=== PATIENT | female | born 1950 | race Caucasian/White ===

== ENCOUNTER → 2016-07-16 | Outpatient (CLI) | payer MEDICARE, BC ==
[~2016-07-16] MED LIST: ATROVENT I0.2 MG/1 M IH; CALCIUM CITRAT200 MG PO; DEXILANT60 MG PO; EVISTA 60MG60 MG/TAB PO; FOSAMAX 70MG TA70 MG PO; OCUVITE1 TA1 PO; SINGULAIR 110 MG/TAB PO; THERA TABS1 TA1 PO; VITAMIN C500 MG PO; VITAMIN D31000 IU PO; ZYRTEC 10MG10 MG PO
== END ==
LOC: MC.RAD 10:00
DX: Z12.31 Encounter for screening mammogram for malignant neoplasm of breast (principal); Z80.3 Family history of malignant neoplasm of breast

== ENCOUNTER → 2016-09-17 | Outpatient (CLI) | payer MEDICARE, BC | LOC: COL.RAD 07:32 | DX: K58.9 Irritable bowel syndrome, unspecified (principal); R10.9 Unspecified abdominal pain | CPT/HCPCS: A9541 ==

== ENCOUNTER → 2017-07-19 | Outpatient (CLI) | payer MEDICARE, BC | LOC: MC.RAD 10:52 | DX: Z12.31 Encounter for screening mammogram for malignant neoplasm of breast (principal) ==

== ENCOUNTER → 2018-08-02 | Outpatient (CLI) | payer MEDICARE, BC | LOC: MC.RAD 14:55 | DX: Z12.31 Encounter for screening mammogram for malignant neoplasm of breast (principal) ==

== ENCOUNTER → 2019-08-08 | Outpatient (CLI) | payer MEDICARE, BC | LOC: MC.RAD 09:49 | DX: Z12.31 Encounter for screening mammogram for malignant neoplasm of breast (principal) ==

== ENCOUNTER → 2019-09-11 | Outpatient (CLI) | payer MEDICARE, BC | LOC: COL.RAD 13:00 | DX: J32.1 Chronic frontal sinusitis (principal); Z98.890 Other specified postprocedural states ==

== ENCOUNTER → 2020-08-08 | Outpatient (CLI) | payer MEDICARE, BC | LOC: MC.RAD 10:21 | DX: Z12.31 Encounter for screening mammogram for malignant neoplasm of breast (principal) ==

== ENCOUNTER 2020-10-07 09:45 | Outpatient (RCR) | payer MEDICARE, BC | END 2020-12-22 | disposition home or self-care (01) | LOC: WSST | DX: R49.0 Dysphonia (principal); J38.7 Other diseases of larynx; R05 Cough ==

== ENCOUNTER → 2020-10-24 | Outpatient (CLI) | payer MEDICARE, BC | LOC: COL.RAD 13:36 | DX: M47.818 Spondylosis without myelopathy or radiculopathy, sacral and sacrococcygeal region (principal) | CPT/HCPCS: G0260; J3301 ==

== ENCOUNTER 2020-11-28 14:46 | Emergency (ER) | payer MEDICARE, BC ==
[~2020-11-28] VITALS: Ht 167.6 cm; Wt 58.6 kg
[2020-11-28 15:47] VITALS: BP 134/64; PULSE 88; TEMP 98.9
== END 2020-11-28 15:45 | disposition home or self-care (01) ==
LOC: COL.ER 14:46
DX: L03.116 Cellulitis of left lower limb (principal); J45.909 Unspecified asthma, uncomplicated

== ENCOUNTER → 2021-08-28 | Outpatient (CLI) | payer MEDICARE, BC | LOC: MC.RAD 09:13 | DX: Z12.31 Encounter for screening mammogram for malignant neoplasm of breast (principal) ==

== ENCOUNTER 2022-02-11 13:46 | Outpatient (RCR) | payer MEDICARE, BC ==
[~2022-02-11] VITALS: Ht 167.6 cm; Wt 60.9 kg
[~2022-02-11 13:46] MED LIST changes: -CALCIUM CITRAT200 MG PO; +CALTRATE-600 W600 MG PO; +PRESERVISION1 SGL PO
[2022-02-11 14:05] VITALS: BP 122/85; PULSE 98; TEMP 98
[2022-02-11] MEDS ORDERED: prevagen PO (14:49)
[2022-02-11] MEDS ORDERED: CHLOR-TABS4 MG PO (14:50)
[2022-02-11] MEDS ORDERED: NASONEX SPRAY17 GM NS (14:50)
== END 2022-02-11 14:51 ==
LOC: EUO 13:46
DX: M81.0 Age-related osteoporosis without current pathological fracture (principal)
CPT/HCPCS: J3111

== ENCOUNTER 2022-03-11 13:47 | Outpatient (CLI) | payer MEDICARE, BC ==
[~2022-03-11] VITALS: Ht 167.6 cm; Wt 62.4 kg
[~2022-03-11 13:47] MED LIST changes: +CHLOR-TABS4 MG PO; +NASONEX SPRAY17 GM NS; +prevagen PO
[2022-03-11 14:23] VITALS: BP 129/78; PULSE 78; TEMP 98
--- NOTE | 2022-03-11 14:40 | NUR ---
Pt exits dept with steady gait. She will contact endocrinology office with any questions or concerns. No issues at time of discharge.
--- NOTE | 2022-03-11 14:40 | NUR ---
Pt exits dept with steady gait. She will contact endocrinology office with any questions or concerns. No issues at time of discharge.
== END 2022-03-11 14:40 | disposition home or self-care (01) ==
LOC: EUO 13:47
DX: M81.0 Age-related osteoporosis without current pathological fracture (principal)
CPT/HCPCS: J3111

== ENCOUNTER 2023-08-31 15:47 | Emergency (ER) | payer MEDICARE, BC ==
[~2023-08-31] VITALS: Ht 167.6 cm; Wt 61.4 kg
[2023-08-31 16:03] VITALS: BP 149/76; PULSE 76
== END 2023-08-31 18:27 | disposition home or self-care (01) ==
LOC: COL.ER 15:47
DX: S20.211A Contusion of right front wall of thorax, initial encounter (principal); W01.198A Fall on same level from slipping, tripping and stumbling with subsequent striking against other object, initial encounter